=== PATIENT | male | born 1995 | race Caucasian/White ===

== ENCOUNTER 2018-07-22 13:01 | Emergency (ER) | payer OTHER ==
[~2018-07-22] VITALS: Ht 172.7 cm; Wt 102.0 kg
[2018-07-22 13:05] VITALS: BP 156/73; PULSE 78; RESP 18; Ht 172.7 cm; Wt 102.0 kg
[2018-07-22] MEDS ORDERED: CLOT30CR24 TOP (14:50)
--- NOTE | 2018-07-22 15:24 | ERD ---
ER Documentation Chief Complaint Chief Complaint YELLOW DISCHARGE X 2 DAYS HPI 22-year-old male presenting with yellow discharge from penis x2 days. Patient denies back pain body aches fevers chills or night sweats. Patient denies any new sexual partners. Patient states he has only been with his . And she is not experience any of the same symptoms. Patient states he only notices this when he urinates. Patient also wants for provider to look at his ingrown toenail. ROS All systems reviewed and are negative except as per history of present illness. Medications Home Meds Active Scripts Clotrimazole* (Clotrimazole* AF) 1% - 30 Gm Cream.gm., 1 APPLIC TOP BID for 7 Days, TUB Prov:RUMA MATT PA-C 07/22/18 PMhx/Soc Medical and Surgical Hx: pt denies Medical Hx, pt denies Surgical Hx FmHx Family History: No diabetes, No coronary disease, No other Physical Exam Vitals Vital Signs Date Temp Pulse Resp B/P (MAP) Pulse Ox O2 O2 Flow FiO2 Time Delivery Rate 07/22/18 97.9 78 18 156/73 98 13:05 (100) GENERAL: The patient is well-appearing, well-nourished, in no acute distress NECK: There is no cervical lymphadenopathy. ABDOMEN:Soft, nontender and nondistended. Good bowel sounds. No rebound or guarding. No gross peritonitis. No gross organomegaly or masses. No Arteaga sign or McBurney point tenderness. BACK: No midline or flank tenderness. : Patient uncircumcised male, patient is able to retract foreskin with out difficulty, patient has white film on head of penis, no signs of swelling, there is no presence of discharge, no presence of lesions, Physical Exam GENERAL: The patient is well-appearing, well-nourished, in no acute distress CHEST: Clear to auscultation bilaterally. There are no rales, wheezes or rhonchi. HEART: Regular rate and rhythm. No murmurs, clicks, rubs or gallops. ABDOMEN:Soft, nontender and nondistended. Good bowel sounds. No rebound or guarding. No gross peritonitis. No gross organomegaly or masses. No Arteaga BACK: No midline or flank tenderness. EXTREMITIES: Equal pulses bilaterally. There is no peripheral clubbing, cyanosis or edema. No focal swelling or erythema. Full range of motion. Grossly neurovascularly intact. Patient has ingrown toenail on left big toe. GI: Patient has presence of white film on head of penis, patient is uncircumcised, patient is able to retract foreskin without difficulty, no signs of lesions, no signs of discharge, Results 24 hrs Laboratory Tests Test 07/22/18 14:44 Bedside Urine pH (LAB) 6.0 Bedside Urine Protein (LAB) Negative Bedside Urine Glucose (UA) 0.50% Bedside Urine Ketones (LAB) Negative Bedside Urine Blood Trace-intact Bedside Urine Nitrite (LAB) Negative Bedside Urine Leukocyte Esterase (L Negative Current Medications Medications Dose Sig/Wesly Start Time Status Last (Trade) Ordered Route PRN Stop Time Admin Dose Reason Admin Lidocaine 10 ml ONCE STAT 07/22/18 DC HCl INJ 15:27 (Lidocaine 07/22/18 15:52 1% (Mdv) 10 ml) Procedures/MDM ED course: Physical exam was performed Patient was in no acute distress Patient was offered procedure for ingrown toenail. Once the patient was set up in the procedure room the patient refused care. The patient was advised the risk associated with leaving the ingrown toenail in. The patient was aware and felt it was appropriate to follow-up with a financial legal assistant. The patient was stable throughout the ED course. The patient and/or family informed of laboratory and diagnostic imaging results throughout the ED course. Procedures: Patient refused ingrown toenail removal Patient tolerated medication well with no adverse reactions. Patient reported improvement in pain. Medical decision makin-year-old male presenting with penile discharge. Physical exam revealed patient is uncircumcised male with white film around penile head. Patient has no discharge, no lesions, patient is able to retract foreskin without difficulty. There is no swelling discoloration to the region at this time I have low suspicion for paraphimosis, arterial occlusion, ischemia, skin necrosis, gangrene. Patient was consulted on hygiene and was given a prescription for candidal infection. Medication was discussed with the patient along with side effects patient was advised to follow-up with his primary care provider within 4 to 5 days regarding this visit. Patient also brought up that he has ingrown toenail. Patient refused treatment for ingrown toenail and stated he preferred to follow-up with specialist because this is a chronic condition that comes back every 6 months. The risks associated with not having the treatment done today was discussed with the patient the patient understands and willingly knows the risk involved with leaving the ingrown to enail in. Patient was in agreement with treatment plan. All questions were answered for the patient prior to discharge. Labs were reviewed with patient for discharge. he was advised if symptoms worsen he can always come back to the ER. Provided patient with resources for financial legal assistant, community clinic, and advised patient that he may have to call his insurance to find a provider within his network. Prescription for home: Clotrimazole side effects of medication was discussed with patient's, patient had no questions regarding medications. Discharge: At this time, patient is stable for discharge and outpatient management. I have instructed the patient to follow-up with his\her primary care physician in 1 to 2 days. I have discussed with the patient the possibility of needing to see a specialist for further work-up and imaging studies if symptoms persist. I have instructed the patient to promptly return to the ER for any new or worsening symptoms including increased pain, fever, nausea, vomiting, weakness or LOC. The patient and\or family expressed understanding of and agreement with this plan. All questions were answered. Home care instructions were provided. Disclaimer: Inadvertent spelling and grammatical errors are likely due to EHR\dictation so ftware use and do not reflect on the overall quality of patient care. Also, please note that the electronic time recorded on the note does not necessarily reflect the actual time of the patient encounter. Departure Diagnosis: Primary Impression: Candidal balanitis Additional Impression: Ingrown nail Condition: Stable Additional Instructions: Patient refused treatment for ingrown toenail. Patient states he has a clipped every 6 months and it has been a chronic issue he feels that it is best to follow-up with a specialist. Patient was provided resources for podiatry. Patient was advised to call insurance to find a financial legal assistant within network. Patient was asked to follow-up with his primary care provider regarding this visit. RUMA MATT PA-C July 22, 2018 15:24
[2018-07-22] MEDS ORDERED: LIDOCAINE 1% (MDV) 10 ML INJ INJ STA (15:27)
== END 2018-07-22 16:05 | disposition home or self-care (01) ==
LOC: FTE 13:01
DX: B37.42 Candidal balanitis (principal); L60.0 Ingrowing nail
CPT/HCPCS: 81003; Z7502; Z7610; 99283